=== PATIENT | female | born 1945 | race Two or more races ===

== ENCOUNTER 2021-07-13 20:25 | Emergency (ER) | payer OTHER ==
[~2021-07-13] VITALS: Ht 152.4 cm; Wt 92.1 kg
[~2021-07-13 20:25] MED LIST: LISINOPRIL20 MG PO
[2021-07-13] MEDS ORDERED: LEVSIN/SL0.125 MG SL (23:04)
[2021-07-13] MEDS ORDERED: PEPCID AC20 MG PO (23:04)
== END 2021-07-13 23:46 | disposition home or self-care (01) ==
LOC: ER 20:25
DX: K80.50 Calculus of bile duct without cholangitis or cholecystitis without obstruction (principal)